=== PATIENT | male | born 1970 | race African-American/Black ===

== ENCOUNTER 2025-03-10 13:29 | Emergency (ER) | payer BC ==
[~2025-03-10] VITALS: Ht 195.6 cm; Wt 104.3 kg
[2025-03-10 15:51] LABS: PLATELET COUNT (AUTO) 164 K/uL (152-348); RED BLOOD CELL COUNT(AUTO) 5.04 MIL/uL (4.06-5.63); RED CELL DISTRIBUTION WIDTH 14.3 % (12.1-16.2); WHITE BLOOD COUNT (AUTO) 9.9 K/uL (3.6-10.2)
[2025-03-10] MEDS ORDERED: SIMV-46 PO (15:53)
[2025-03-10] MEDS ORDERED: LOSA100T31 PO (15:53)
[2025-03-10 16:00] LABS: CREATININE 1.2 mg/dL (0.6-1.3); SODIUM SERUM 139 mmol/L (136-145); UREA NITROGEN, BLOOD 20 mg/dL (7-18)
[2025-03-10] MEDS ORDERED: SWABABLE VALVE TRANSFER SET EA MC ONE (16:00)
[2025-03-10] MEDS ORDERED: IOHEXOL 350 100 ML INFUS..BTL ONE (16:00)
[2025-03-10] MEDS ORDERED: IV NORMAL SALINE 250 ML BAG ONE (16:00)
[2025-03-10 16:06] LABS: ASPARTATE AMINOTRANSFERASE 25 U/L (15-37); TOTAL PROTEIN, SERUM 7.0 g/dL (6.4-8.2)
[2025-03-10 18:19] LABS: *BILIRUBIN,URIN NEGATIVE (NEGATIVE); *CLARITY,URINE CLEAR (CLEAR); *COLOR,URINE YELLOW (YELLOW); *KETONES,URINE NEGATIVE (NEGATIVE); *PROTEIN,URINE TRACE (NEGATIVE); *UROBILINOGEN,URINE 0.2 E.U./dl (NORMAL); LEUKOCYTE ESTERASE ,URINE 1+ (NEGATIVE); NITRITE, URINE NEGATIVE (NEGATIVE); UGLUCOSE NEGATIVE (NEGATIVE)
[2025-03-10 18:22] LABS: *BLOOD, URINE TRACE (NEGATIVE)
[2025-03-10 18:29] LABS: SQUAMOUS EPITHELIAL CELL,UR FEW /HPF (NONE SEEN)
[2025-03-10 18:30] LABS: *AMPHETAMINE, URINE NEGATIVE (NEGATIVE); *BARBITURATE, URINE NEGATIVE (NEGATIVE); *BENZODIAZEPINE, URINE NEGATIVE (NEGATIVE); *CANNABINOID, URINE NEGATIVE (NEGATIVE); *COCCAINE, URINE NEGATIVE (NEGATIVE); *OPIATE, URINE NEGATIVE (NEGATIVE); *PHENCYCLIDINE SCREEN,URINE NEGATIVE (NEGATIVE); FENTANYL, URINE NEGATIVE (NEGATIVE)
[2025-03-10 20:30] VITALS: BP 186/113; O2SAT 94
== END 2025-03-10 20:50 | disposition short-term general hospital (02) ==
LOC: ER 13:29
DX: I63.549 Cerebral infarction due to unspecified occlusion or stenosis of unspecified cerebellar artery (principal); G93.6 Cerebral edema; I10 Essential (primary) hypertension; I21.A1 Myocardial infarction type 2; R32 Unspecified urinary incontinence; R26.81 Unsteadiness on feet; R47.1 Dysarthria and anarthria; I48.91 Unspecified atrial fibrillation; Z79.899 Other long term (current) drug therapy
CPT/HCPCS: 99291; 70496; 71045; 80076; 80048; 82962; 85025; 85730; 86850; 86900; 86901; 87086; 84484; 36415; 70498; 93005; 80307; 81001; 70450; Q9967; A4606; A4663